=== PATIENT | female | born 1960 | race Two or more races ===

== ENCOUNTER 2022-02-14 18:08 | Emergency (ER) | payer OTHER ==
[~2022-02-14] VITALS: Ht 160 cm; Wt 52.2 kg
[2022-02-14] MEDS ORDERED: ALPRAZOLAM0.25 MG (18:35)
[2022-02-14] MEDS ORDERED: ZESTRIL2.5 MG (18:36)
[2022-02-14] MEDS ORDERED: SIMVASTATIN5 MG (18:36)
== END 2022-02-14 21:03 | disposition home or self-care (01) ==
LOC: ER 18:08
DX: F41.9 Anxiety disorder, unspecified (principal)